=== PATIENT | female | born 1975 | race African-American/Black ===

== ENCOUNTER → 2016-12-14 | Outpatient (CLI) | payer OTHER ==
[~2016-12-14] MED LIST: AMITRIPTYLINE100 MG PO; ATENOLOL PO; ATENOLOL50 MG PO; CIPRO PO; FEROSUL325 ( 651 PO; FLEXERIL PO; FOLIC ACID PO; FOLIC ACID1 MG PO; GABAPENTIN300 M2 PO; GABAPENTIN600 MG PO; HAIR, SKIN & N1 EAC1 PO; IRON45 MG PO; K-DUR20 ME2 PO; LASIX PO; LASIX20 MG PO; LEVOFLOXACIN PO; LISINOPRIL PO; LORTAB 7.5-3251 EACH PO; METHADOSE5 MG PO; MS CONTIN15 M1 PO; MULTIPLE VITAMI1 T11 PO; NORCO 5/325 TAB1 TAB PO; NORCO1 TAB 10/3 PO; PHENAZOPYRIDIN100 M1 PO; POTASSIUM CHLO20 ME1 PO; PYRIDIUM PO
== END | disposition home or self-care (01) ==
LOC: CSSDAY 14:26
DX: G35 Multiple sclerosis (principal); Z79.899 Other long term (current) drug therapy
CPT/HCPCS: 96413; J2323

== ENCOUNTER → 2017-01-11 | Outpatient (CLI) | payer OTHER | END | disposition home or self-care (01) | LOC: CSSDAY 14:14 | DX: G35 Multiple sclerosis (principal); Z79.899 Other long term (current) drug therapy | CPT/HCPCS: 96413; J2323 ==

== ENCOUNTER → 2017-02-08 | Outpatient (CLI) | payer OTHER | END | disposition home or self-care (01) | LOC: CSSDAY 09:00 | DX: G35 Multiple sclerosis (principal); Z79.899 Other long term (current) drug therapy | CPT/HCPCS: 96413; J2323 ==

== ENCOUNTER → 2017-03-08 | Outpatient (CLI) | payer OTHER | END | disposition home or self-care (01) | LOC: CSSDAY 10:00 | DX: G35 Multiple sclerosis (principal); Z79.899 Other long term (current) drug therapy | CPT/HCPCS: 96413; J2323 ==

== ENCOUNTER → 2017-04-05 | Outpatient (CLI) | payer OTHER | END | disposition home or self-care (01) | LOC: CSSDAY 12:00 | DX: G35 Multiple sclerosis (principal); Z79.899 Other long term (current) drug therapy | CPT/HCPCS: 96413; J2323 ==

== ENCOUNTER → 2017-05-03 | Outpatient (CLI) | payer OTHER | END | disposition home or self-care (01) | LOC: CSSDAY 13:00 | DX: G35 Multiple sclerosis (principal); Z79.899 Other long term (current) drug therapy | CPT/HCPCS: 96413; J2323 ==

== ENCOUNTER → 2017-05-31 | Outpatient (CLI) | payer OTHER | END | disposition home or self-care (01) | LOC: CSSDAY 13:00 | DX: G35 Multiple sclerosis (principal); Z79.899 Other long term (current) drug therapy | CPT/HCPCS: 96413; J2323 ==